=== PATIENT | female | born 2000 | race Caucasian/White ===

== ENCOUNTER 2020-02-02 07:54 | Outpatient (CLI) | payer OTHER, SELFPAY | END 2020-02-02 07:55 | disposition home or self-care (01) | LOC: ANHAUDIO 07:56 | PROVIDERS: PCP Pediatrics; Visit Provider Otolaryngology | DX: R42 Dizziness and giddiness (principal) | CPT/HCPCS: 92537; 92540; 92546; 92557; 92567 ==